=== PATIENT | male | born 1990 | race Caucasian/White ===

== ENCOUNTER 2017-05-25 12:28 | Emergency (ER) | payer OTHER ==
[~2017-05-25] VITALS: Ht 177.8 cm; Wt 117.9 kg
[2017-05-25 12:28] VITALS: BP_SYST 156
--- NOTE | 2017-05-25 12:30 | NUR ---
Patient triaged and placed in waiting room. VSS and patient appears in no acute distress at this time. Accompanied by MOTHER, awaiting available bed, and MD notified of need for MSE.
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
--- NOTE | 2017-05-25 13:33 | NUR ---
ER IT NETWORK ARCHITECT Pamela in triage examining patient.
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
--- NOTE | 2017-05-25 14:29 | NUR ---
Pamela REPAIR SERVICE CLERK at bedside examining patient.
[2017-05-25] MEDS ORDERED: BACITRACIN 1 GM OINT TP ONE (14:30)
[2017-05-25] MEDS ORDERED: HYDROcodone/ACETAMIN 7.5-325 MG TAB PO ONE (14:45)
--- NOTE | 2017-05-25 14:50 | NUR ---
Pain medication was given to pt, tolerated it well. No noted adverse reaction, will continue to monitor.
[2017-05-25 15:31] VITALS: BP_SYST 148
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
== END 2017-05-25 15:31 | disposition home or self-care (01) ==
LOC: SED 12:28
DX: S00.83XA Contusion of other part of head, initial encounter (principal); S80.212A Abrasion, left knee, initial encounter; S80.211A Abrasion, right knee, initial encounter; M79.642 Pain in left hand; M79.641 Pain in right hand; R03.0 Elevated blood-pressure reading, without diagnosis of hypertension; Y04.2XXA Assault by strike against or bumped into by another person, initial encounter; Y93.89 Activity, other specified; Y92.89 Other specified places as the place of occurrence of the external cause; Y99.8 Other external cause status
CPT/HCPCS: 70450-TC; 70486-TC; 99284